=== PATIENT | male | born 1985 | race African-American/Black ===

== ENCOUNTER 2016-10-24 19:41 | Emergency (ER) | payer MEDICAID ==
[~2016-10-24] VITALS: Ht 175.3 cm; Wt 93.1 kg
[2016-10-24] MEDS ORDERED: HYDROmorphone 1 MG/ML, 1ML IM ONE (20:30)
[2016-10-24] MEDS ORDERED: DIAZEPAM 5 MG TABLET PO ONE (20:30)
[2016-10-24] MEDS ORDERED: HYDROmorphone 1 MG/ML, 1ML ONE (20:35)
[2016-10-24] MEDS ORDERED: DIAZEPAM 5 MG TABLET ONE (20:36)
[2016-10-24 21:12] VITALS: BP 128/81
== END 2016-10-24 21:14 | disposition home or self-care (01) ==
LOC: ED 20:45
DX: M54.16 Radiculopathy, lumbar region (principal); M54.41 Lumbago with sciatica, right side
CPT/HCPCS: 96372; 99283; J1170

== ENCOUNTER 2018-12-15 08:07 | Inpatient (IN) | payer MEDICAID ==
[~2018-12-15] VITALS: Ht 170.2 cm; Wt 80.0 kg
--- NOTE | 2018-12-15 08:27 | NUR ---
pt to room from lobby
--- NOTE | 2018-12-15 08:36 | NUR ---
pt reports n/v since last night. denies diarrhea. no significant past medical hx.
[2018-12-15] MEDS ORDERED: lithium PO (08:38)
[2018-12-15] MEDS ORDERED: adhd medication PO (08:40)
[2018-12-15] MEDS ORDERED: ONDANSETRON 2MG/ML, 2ML ONE (08:56)
[2018-12-15] MEDS ORDERED: MORPHINE SULFATE 4 MG/ML, 1ML ONE ×2 (08:57→11:16)
[2018-12-15] MEDS ORDERED: SODIUM CHLORIDE FLUSH 10ML SYR IVF ONE (09:00)
[2018-12-15] MEDS ORDERED: ONDANSETRON 2MG/ML, 2ML IVPush ONE (09:00)
[2018-12-15] MEDS: MORPHINE SULFATE 4 MG/ML, 1ML IVPush PRN ×2 (09:19→11:19)
--- NOTE | 2018-12-15 09:26 | NUR ---
PIV placed. pt tolerated procedure well. pt reports pain has improved to 5/10. pt drowsy
[2018-12-15 09:30] LABS: MEAN CORPUSCULAR HEMOGLOBIN 30.8 pg (27.5-34.5); MEAN CORPUSCULAR HGB CONC 31.8 g/dL (33.2-36.2); MEAN CORPUSCULAR VOLUME 96.8 fL (81-97); MEAN PLATELET VOLUME 8.6 fL (7.4-10.4); PLATELET COUNT 224 x10^3/uL (130-400); RED BLOOD COUNT 5.18 x10^6/uL (4.38-5.82); RED CELL DISTRIBUTION WIDTH 14.4 % (9.4-14.8)
[2018-12-15 09:43] LABS: ALBUMIN 4.3 g/dL (3.4-5.0); ANION GAP 3 mmol/L (5-15); CALCIUM 9.5 mg/dL (8.5-10.1); CHLORIDE 103 mmol/L (98-107)
[2018-12-15 09:46] LABS: ALANINE AMINOTRANSFERASE 24 U/L (12-78); ALKALINE PHOSPHATASE 79 U/L (45-117); BILIRUBIN,TOTAL 0.9 mg/dL (0.2-1.0); CREATININE 1.51 mg/dL (0.7-1.3); TOTAL PROTEIN 8.7 g/dL (6.4-8.2)
[2018-12-15 10:10] LABS: MD YES
--- NOTE | 2018-12-15 10:10 | NUR ---
BS REPORT FROM [facility], ASSUME CARE OF PT AT THIS TIME. UA NEEDED STILL, PT AWARE. PT TO CT.
[2018-12-15 10:12] LABS: <RBC MORPHOLOGY> NORMAL; BAND#(MANUAL) 0.25 x10^3/uL; BANDS%(MANUAL) 1 % (0-7); LYMPH#(MANUAL) 1.01 x10^3/uL (1-3.4); LYMPHS% (MANUAL) 4 % (22-44); MONOS#(MANUAL) 0.25 x10^3/uL (0.3-2.7); MONOS% (MANUAL) 1 % (2-9); SEG#(MANUAL) 23.78 x10^3/uL (1.8-6.8); SEGS% (MANUAL) 94 % (42-75)
[2018-12-15 10:13] LABS: <PLATELET ESTIMATE> ADEQUATE; <PLT MORPHOLOGY> NORMAL PLT MORPH
[2018-12-15] MEDS ORDERED: SODIUM CHLORIDE 0.9% 1,000ML IVBOLUS ONE (10:30)
[2018-12-15 10:52] LABS: MICROSCOPIC AUTO
[2018-12-15 10:59] LABS: CULTURE INDICATED? YES
--- NOTE | 2018-12-15 11:21 | NUR ---
PT REQUESTING MORE PAIN MEDS FOR INCREASING ABD PAIN, NOW RATED 8/10. 2ND DOSE OF MORPHINE GIVEN PER ERP ORDER. PT AND FAMILY UPDATED ON POC. CALL LIGHT WITHIN REACH.
[2018-12-15] MEDS ORDERED: CEFTRIAXONE PMX 1GM/50ML 50 ML IVPB ONE (11:30)
[2018-12-15] MEDS ORDERED: CEFTRIAXONE PMX 1GM/50ML 50 ML ONE (11:49)
--- NOTE | 2018-12-15 11:55 | NUR ---
ROCEPHIN INFUSING AFTER VERIFYING BC X 2 DRAWN PRIOR. PT SLEEPING,NAD.
[2018-12-15] MEDS ORDERED: SODIUM CHLORIDE FLUSH 10ML SYR IVF PRN (12:00)
--- NOTE | 2018-12-15 12:11 | NUR ---
ATTEMPT TO CALL REPORT X1, RN AT [facility]. WILL CALL BACK WHEN AVAILABLE.
--- NOTE | 2018-12-15 12:22 | NUR ---
PT WITH [facility]. DENIED BY [facility] AT [facility] AND [facility]INCENT AT [facility]
--- NOTE | 2018-12-15 12:28 | NUR ---
REPORT TO ELEONORA LEBLANC, PT READY FOR TRANSPORT TO FLOOR.
[2018-12-15] MEDS ORDERED: ACETAMINOPHEN 325 MG TABLET PO PRN (13:00)
[2018-12-15] MEDS ORDERED: ONDANSETRON 2MG/ML, 2ML IVPush PRN (13:00)
[2018-12-15] MEDS ORDERED: METOCLOPRAMIDE 5 MG/ML, 2ML IVPush PRN (13:00)
[2018-12-15] MEDS ORDERED: DOCUSATE 100 MG CAPSULE PO PRN (13:00)
[2018-12-15] MEDS ORDERED: POLYETHYLENE GLYCOL 17 GM PACKET PO PRN (13:00)
[2018-12-15 13:16] VITALS: BP 128/87
[2018-12-15 14:01] LABS: TROPONIN I < 0.015 ng/mL (0.000-0.045)
[2018-12-15 14:30] LABS: HEMOGLOBIN A1C 5.5 % (4.2-6.3)
[2018-12-15] MEDS: NICOTINE 21 MG/24 HR PATCH.TD24 TD SCH (16:26)
[2018-12-15] MEDS: SODIUM CHLORIDE 0.9% 1,000 ML IV SCH ×2 (16:27→22:56)
[2018-12-15] MEDS: morphine SULFATE 10 MG/ML, 1ML IVPush PRN ×2 (17:18→21:14)
[2018-12-15 17:19] VITALS: BP 119/68
[2018-12-15 19:28] LABS: TROPONIN I < 0.015 ng/mL (0.000-0.045)
[2018-12-15 19:59] VITALS: BP 118/83
[2018-12-15] MEDS ORDERED: LITH300T22 PO (20:02)
[2018-12-15] MEDS ORDERED: CHOL500050 PO (20:02)
[2018-12-15] MEDS ORDERED: METH18TA PO (20:02)
[2018-12-15] MEDS ORDERED: TRAZ-96 PO (20:02)
[2018-12-15] MEDS ORDERED: CLON1TAB11 PO (20:02)
[2018-12-15] MEDS ORDERED: ARIP10TA15 PO (20:02)
[2018-12-15] MEDS ORDERED: ESCI20TA PO (20:02)
[2018-12-16 02:25] VITALS: BP 121/81
[2018-12-16] MEDS: morphine SULFATE 10 MG/ML, 1ML IVPush PRN ×3 (03:08→13:25)
[2018-12-16] MEDS: SODIUM CHLORIDE 0.9% 1,000 ML IV SCH ×2 (04:58→13:21)
[2018-12-16 05:07] LABS: MEAN CORPUSCULAR HEMOGLOBIN 31.5 pg (27.5-34.5); MEAN CORPUSCULAR HGB CONC 32.7 g/dL (33.2-36.2); MEAN CORPUSCULAR VOLUME 96.5 fL (81-97); MEAN PLATELET VOLUME 9.5 fL (7.4-10.4); PLATELET COUNT 205 x10^3/uL (130-400); RED CELL DISTRIBUTION WIDTH 14.3 % (9.4-14.8)
[2018-12-16 05:11] LABS: ALBUMIN 3.2 g/dL (3.4-5.0); ANION GAP 4 mmol/L (5-15); CALCIUM 8.5 mg/dL (8.5-10.1); CHLORIDE 111 mmol/L (98-107)
[2018-12-16 05:24] LABS: ALANINE AMINOTRANSFERASE 83 U/L (12-78); ALKALINE PHOSPHATASE 73 U/L (45-117); BILIRUBIN,TOTAL 1.5 mg/dL (0.2-1.0); CHOLESTEROL, TOTAL 117 mg/dL (140-239); HDL CHOL % 33 % (26-37); HDL CHOLESTEROL (DIRECT) 39 mg/dL (40-60); LDL CHOLESTEROL,CALCULATED 61 mg/dL (54-169); LDL/HDL RATIO 1.6 (0.5-3.0); TOTAL PROTEIN 6.8 g/dL (6.4-8.2); TRIGLYCERIDES 85 mg/dL (50-200); VLDL CHOLESTEROL 17 mg/dL (0-25)
[2018-12-16 05:43] LABS: BASOPHILS # (AUTO) 0.04 x10^3/uL (0-0.1); BASOPHILS % (AUTO) 0 % (0-1); EOSINOPHILS % (AUTO) 0 % (1-7); LYMPHOCYTES # (AUTO) 2.42 x10^3/uL (1-3.4); LYMPHOCYTES % (AUTO) 14 % (22-44); MD SCAN; MONOCYTES # (AUTO) 1.25 x10^3/uL (0.2-0.8); MONOCYTES % (AUTO) 7 % (2-9); NEUTROPHILS # (AUTO) 13.68 x10^3/uL (1.8-6.8); NEUTROPHILS % (AUTO) 79 % (42-75)
[2018-12-16 08:36] VITALS: BP 125/85
[2018-12-16] MEDS: PANTOPRAZOLE 40 MG IV IVPush SCH (09:47)
[2018-12-16] MEDS: NICOTINE 21 MG/24 HR PATCH.TD24 TD SCH (13:18)
[2018-12-16] MEDS: PIPERACILLIN/TAZO/PMX 3.375GM 50 ML IV SCH ×2 (13:18→18:00)
[2018-12-16 13:25] VITALS: BP 122/80
[2018-12-16 15:00] VITALS: BP 83/46
[2018-12-16] MEDS ORDERED: BUPIVACAINE/PF 0.5% ONE (15:19)
[2018-12-16] MEDS ORDERED: EPINEPHRINE 1 MG/ML, 1ML ONE (15:19)
[2018-12-16] MEDS ORDERED: FENTANYL PF 250 MCG/5ML ONE (17:12)
[2018-12-16] MEDS ORDERED: MIDAZOLAM 1 MG/ML, 2ML ONE (17:12)
[2018-12-16] MEDS ORDERED: ONDANSETRON ODT 8 MG PO PRN (18:00)
[2018-12-16] MEDS ORDERED: OXYcodone 5 MG/5 ML ORAL.SOL UDC PO PRN (18:00)
[2018-12-16] MEDS ORDERED: ONDANSETRON 2MG/ML, 2ML IV PRN ×2 (18:00→21:30)
[2018-12-16] MEDS ORDERED: HYDROmorphone 2 MG/ML, 1ML IVPush PRN (18:00)
[2018-12-16] MEDS ORDERED: MEPERIDINE/PF 25MG/0.5ML IVPush PRN (18:00)
[2018-12-16] MEDS ORDERED: PROMETHAZINE 25 MG/ML, 1ML IV PRN (18:00)
[2018-12-16] MEDS ORDERED: FENTANYL PF 100 MCG/2ML IV PRN (18:00)
[2018-12-16] MEDS ORDERED: LORazepam 2 MG/ML, 1ML IVPush PRN (18:00)
[2018-12-16] MEDS ORDERED: ACETAMINOPHEN 325 MG TABLET PO PRN (18:00)
[2018-12-16] MEDS ORDERED: SUCCINYLCHOLINE 20 MG/ML, 10ML ONE (18:48)
[2018-12-16] MEDS ORDERED: NEOSTIGMINE 1 MG/ML, 10ML ONE (18:48)
[2018-12-16] MEDS ORDERED: CEFAZOLIN 1,000 MG ONE (18:48)
[2018-12-16] MEDS ORDERED: GLYCOPYRROLATE 0.2MG/1ML, 5ML ONE (18:48)
[2018-12-16] MEDS ORDERED: ROCURONIUM 10MG/ML,5ML ONE (18:48)
[2018-12-16] MEDS ORDERED: ONDANSETRON 2MG/ML, 2ML ONE (18:48)
[2018-12-16] MEDS ORDERED: CEFOTETAN PMX 2GM/50ML 50 ML ONE (18:48)
[2018-12-16] MEDS ORDERED: DEXAMETHASONE 4 MG/ML, 1ML ONE (18:48)
[2018-12-16] MEDS ORDERED: PROPOFOL 10 MG/ML, 20ML ONE (18:48)
[2018-12-16] MEDS ORDERED: FENTANYL PF 100 MCG/2ML ONE (19:19)
[2018-12-16] MEDS ORDERED: MEPERIDINE/PF 25MG/ML,1ML ONE (19:19)
[2018-12-16] MEDS ORDERED: OXYcodone 5 MG/5 ML ORAL.SOL UDC ONE (19:19)
[2018-12-16 21:02] VITALS: BP 114/78
[2018-12-16] MEDS: LACTATED RINGERS 1,000 ML IV SCH (21:49)
[2018-12-17] MEDS: HYDROcodone/APAP 5/325 TABLET PO PRN ×3 (00:28→19:07)
[2018-12-17] MEDS: PIPERACILLIN/TAZO/PMX 3.375GM 50 ML IV SCH ×4 (00:28→18:03)
[2018-12-17 02:00] VITALS: BP 98/58
[2018-12-17 04:21] VITALS: BP 116/75
[2018-12-17 04:39] LABS: BASOPHILS # (AUTO) 0.02 x10^3/uL (0-0.1); BASOPHILS % (AUTO) 0 % (0-1); EOSINOPHILS % (AUTO) 0 % (1-7); LYMPHOCYTES # (AUTO) 2.01 x10^3/uL (1-3.4); LYMPHOCYTES % (AUTO) 13 % (22-44); MD NO; MEAN CORPUSCULAR HEMOGLOBIN 31.8 pg (27.5-34.5); MEAN CORPUSCULAR HGB CONC 32.7 g/dL (33.2-36.2); MEAN CORPUSCULAR VOLUME 97.1 fL (81-97); MEAN PLATELET VOLUME 8.7 fL (7.4-10.4); MONOCYTES # (AUTO) 0.59 x10^3/uL (0.2-0.8); MONOCYTES % (AUTO) 4 % (2-9); NEUTROPHILS # (AUTO) 13.12 x10^3/uL (1.8-6.8); NEUTROPHILS % (AUTO) 83 % (42-75); PLATELET COUNT 214 x10^3/uL (130-400); RED BLOOD COUNT 4.42 x10^6/uL (4.38-5.82); RED CELL DISTRIBUTION WIDTH 14.7 % (9.4-14.8)
[2018-12-17 04:50] LABS: ANION GAP 3 mmol/L (5-15); CHLORIDE 110 mmol/L (98-107)
[2018-12-17 04:54] LABS: ALANINE AMINOTRANSFERASE 110 U/L (12-78); ALKALINE PHOSPHATASE 83 U/L (45-117); CREATININE 1.43 mg/dL (0.7-1.3); TOTAL PROTEIN 6.9 g/dL (6.4-8.2)
[2018-12-17] MEDS: LACTATED RINGERS 1,000 ML IV SCH ×2 (06:02→20:04)
[2018-12-17] MEDS: PANTOPRAZOLE 40 MG IV IVPush SCH (07:51)
[2018-12-17 07:54] VITALS: BP 120/83
[2018-12-17] MEDS: NICOTINE 21 MG/24 HR PATCH.TD24 TD SCH (12:31)
[2018-12-17 13:35] VITALS: BP 136/83
[2018-12-17] MEDS ORDERED: OXYcodone IR 5MG TABLET PO PRN (14:00)
[2018-12-17 14:41] LABS: ALBUMIN 2.8 g/dL (3.4-5.0); ANION GAP 7 mmol/L (5-15); CALCIUM 8.3 mg/dL (8.5-10.1); CHLORIDE 111 mmol/L (98-107); CREATININE 1.28 mg/dL (0.7-1.3)
[2018-12-17 15:51] LABS: CREATININE,URINE RANDOM 53.2 mg/dL
[2018-12-17 17:20] LABS: MICROSCOPIC NOT IND
[2018-12-17 17:25] LABS: CULTURE INDICATED? NO
[2018-12-17 18:51] VITALS: BP 122/82
[2018-12-18] MEDS: PIPERACILLIN/TAZO/PMX 3.375GM 50 ML IV SCH ×4 (00:25→19:32)
[2018-12-18] MEDS: HYDROcodone/APAP 5/325 TABLET PO PRN ×3 (00:25→19:20)
[2018-12-18 01:38] VITALS: BP 125/80
[2018-12-18] MEDS: LACTATED RINGERS 1,000 ML IV SCH (04:27)
[2018-12-18 05:24] LABS: MEAN CORPUSCULAR HEMOGLOBIN 31.8 pg (27.5-34.5); MEAN CORPUSCULAR HGB CONC 32.6 g/dL (33.2-36.2); MEAN CORPUSCULAR VOLUME 97.7 fL (81-97); MEAN PLATELET VOLUME 9.1 fL (7.4-10.4); PLATELET COUNT 202 x10^3/uL (130-400); RED BLOOD COUNT 3.77 x10^6/uL (4.38-5.82); RED CELL DISTRIBUTION WIDTH 14.5 % (9.4-14.8)
[2018-12-18 05:29] LABS: ALANINE AMINOTRANSFERASE 71 U/L (12-78); ALBUMIN 2.4 g/dL (3.4-5.0); ANION GAP 3 mmol/L (5-15); CALCIUM 8.1 mg/dL (8.5-10.1); CHLORIDE 113 mmol/L (98-107); CREATININE 1.25 mg/dL (0.7-1.3)
[2018-12-18 05:32] LABS: ALKALINE PHOSPHATASE 61 U/L (45-117); BILIRUBIN,TOTAL 0.6 mg/dL (0.2-1.0); TOTAL PROTEIN 5.8 g/dL (6.4-8.2)
[2018-12-18 06:20] LABS: BASOPHILS # (AUTO) 0.05 x10^3/uL (0-0.1); BASOPHILS % (AUTO) 0 % (0-1); EOSINOPHILS # (AUTO) 0.14 x10^3/uL (0-0.4); EOSINOPHILS % (AUTO) 1 % (1-7); LYMPHOCYTES # (AUTO) 4.81 x10^3/uL (1-3.4); LYMPHOCYTES % (AUTO) 37 % (22-44); MD SCAN; MONOCYTES # (AUTO) 0.88 x10^3/uL (0.2-0.8); MONOCYTES % (AUTO) 7 % (2-9); NEUTROPHILS # (AUTO) 7.21 x10^3/uL (1.8-6.8); NEUTROPHILS % (AUTO) 55 % (42-75)
[2018-12-18 06:54] VITALS: BP 123/76
[2018-12-18] MEDS: PANTOPRAZOLE 40 MG IV IVPush SCH (08:44)
[2018-12-18 12:06] VITALS: BP 135/82
[2018-12-18] MEDS: ESCITALOPRAM 10MG TABLET PO SCH (13:00)
[2018-12-18] MEDS: NICOTINE 21 MG/24 HR PATCH.TD24 TD SCH (13:05)
[2018-12-18 20:37] VITALS: BP 126/77
[2018-12-18] MEDS ORDERED: ARIPIPRAZOLE 10 MG TABLET PO SCH (21:00)
[2018-12-18] MEDS ORDERED: LACTATED RINGERS 1,000 ML IV SCH (21:30)
[2018-12-18] MEDS: LITHIUM CARBONATE 300 MG TABLET.ER PO SCH (21:48)
[2018-12-19] MEDS: PIPERACILLIN/TAZO/PMX 3.375GM 50 ML IV SCH ×2 (01:50→09:44)
[2018-12-19 03:39] VITALS: BP 112/69
[2018-12-19 05:33] LABS: BASOPHILS # (AUTO) 0.03 x10^3/uL (0-0.1); BASOPHILS % (AUTO) 0 % (0-1); EOSINOPHILS # (AUTO) 0.28 x10^3/uL (0-0.4); EOSINOPHILS % (AUTO) 3 % (1-7); LYMPHOCYTES # (AUTO) 4.94 x10^3/uL (1-3.4); LYMPHOCYTES % (AUTO) 46 % (22-44); MD NO; MEAN CORPUSCULAR HEMOGLOBIN 31.3 pg (27.5-34.5); MEAN CORPUSCULAR HGB CONC 32.5 g/dL (33.2-36.2); MEAN CORPUSCULAR VOLUME 96.3 fL (81-97); MEAN PLATELET VOLUME 8.6 fL (7.4-10.4); MONOCYTES % (AUTO) 8 % (2-9); NEUTROPHILS # (AUTO) 4.65 x10^3/uL (1.8-6.8); NEUTROPHILS % (AUTO) 43 % (42-75); PLATELET COUNT 228 x10^3/uL (130-400); RED CELL DISTRIBUTION WIDTH 14.2 % (9.4-14.8)
[2018-12-19 05:36] LABS: CHLORIDE 113 mmol/L (98-107)
[2018-12-19 05:40] LABS: ALBUMIN 2.5 g/dL (3.4-5.0); ANION GAP 4 mmol/L (5-15); CALCIUM 8.4 mg/dL (8.5-10.1); CREATININE 1.25 mg/dL (0.7-1.3)
[2018-12-19 07:10] VITALS: BP 144/88
[2018-12-19] MEDS ORDERED: METHYLPHENIDATE HCL 18 MG HOMEMEDPO SCH (09:00)
[2018-12-19] MEDS: ESCITALOPRAM 10MG TABLET PO SCH (09:00)
[2018-12-19] MEDS: LITHIUM CARBONATE 300 MG TABLET.ER PO SCH (09:44)
[2018-12-19] MEDS: PANTOPRAZOLE 40 MG IV IVPush SCH (09:44)
== END 2018-12-19 11:12 | disposition left against medical advice (07) | DRG 854 ==
LOC: ED 12:06 → EDIP 12:10 → 4NOR 12:55
PROVIDERS: ADMIT Internal Medicine; ATTEND Internal Medicine
PROC: 0FT44ZZ Resection of Gallbladder, Percutaneous Endoscopic Approach (ICD-10-PCS; principal; 2018-12-16 16:00)
DX: A41.9 Sepsis, unspecified organism (principal); K80.00 Calculus of gallbladder with acute cholecystitis without obstruction; K82.A2 Perforation of gallbladder in cholecystitis; N17.9 Acute kidney failure, unspecified; K82.A1 Gangrene of gallbladder in cholecystitis; F12.20 Cannabis dependence, uncomplicated; F17.210 Nicotine dependence, cigarettes, uncomplicated; F31.9 Bipolar disorder, unspecified; F90.9 Attention-deficit hyperactivity disorder, unspecified type; G89.29 Other chronic pain; K29.70 Gastritis, unspecified, without bleeding; K76.0 Fatty (change of) liver, not elsewhere classified; Z53.21 Procedure and treatment not carried out due to patient leaving prior to being seen by health care provider; N30.90 Cystitis, unspecified without hematuria; Z82.49 Family history of ischemic heart disease and other diseases of the circulatory system; Z83.3 Family history of diabetes mellitus
CPT/HCPCS: 36415; 96361; 99285; S0020; 74177; 76705; 80048; 80053; 80061; 80178; 81001; 81003; 82040; 82436; 82570; 83036; 83605; 83690; 84133; 84300; 84443; 84484; 85025; 87040; 87086; 88304; 96374; 96375; C1729; G0378; J0171; J0690; J0696; J1100; J2175; J2250; J2405; J2543; J2704; J2710; J3010; C9113; J0330; J2270; J3490; J7030; J7120